=== PATIENT | female | born 1995 | race Caucasian/White ===

== ENCOUNTER 2025-06-10 17:39 | Emergency (ER) | payer OTHER ==
[~2025-06-10] VITALS: Ht 162.6 cm; Wt 82.0 kg
[2025-06-10 17:46] VITALS: O2SAT 98
[2025-06-10] MEDS: KETOROLAC 15MG/ML VIAL IM ONE (21:00)
[2025-06-10 21:46] LABS: BASOPHILS % 0.4 % (0.0-2.0); EOSINOPHILS % 0.1 % (0.0-5.0); HEMATOCRIT. 41.6 % (36.0-48.0); HEMOGLOBIN. 13.9 g/dL (12.0-16.0); LYMPHOCYTES % 8.7 % (20.0-50.0); MEAN PLATELET VOLUME 7.8 fl (7.4-10.4); MONOCYTES % 4.7 % (2.0-8.0); NEUTROPHILS % 86.1 % (40.0-76.0); PLATELET 278 x1000/uL (130-400); RED BLOOD CELL COUNT 4.88 mill/uL (4.2-5.4); RED CELL DISTRIBUTION WIDTH 13.7 % (11.6-14.6)
[2025-06-10 21:58] LABS: CREATININE 0.7 mg/dL (0.6-1.0); UREA NITROGEN BLOOD 11 mg/dL (9-23)
[2025-06-10 22:01] LABS: HCG SCREEN NEGATIVE
[2025-06-10] MEDS: HYDROCODONE/ACETAMINOPHEN 5/325MG TABLET PO ONE (22:34)
[2025-06-10] MEDS ORDERED: IOHEXOL-300 100 ML BOTTLE ONE (23:17)
[2025-06-10] MEDS ORDERED: NAPR-1176 MT (23:21)
[2025-06-10] MEDS ORDERED: LIDO-53 TP (23:21)
[2025-06-10 23:35] VITALS: BP 116/79; PULSE 75; RESP 15; TEMP 37; O2SAT 99
== END 2025-06-10 23:40 | disposition home or self-care (01) ==
LOC: ER 17:39
DX: S30.1XXA Contusion of abdominal wall, initial encounter (principal); M79.631 Pain in right forearm; V49.9XXA Car occupant (driver) (passenger) injured in unspecified traffic accident, initial encounter; Y93.89 Activity, other specified; Y92.410 Unspecified street and highway as the place of occurrence of the external cause; Y99.8 Other external cause status
CPT/HCPCS: 99285; 74177; 71045; 80048; 81025; 84703; 85025; 36415; 73090; 93005; J1885; Q9967